=== PATIENT | female | born 1975 | race Caucasian/White ===

== ENCOUNTER 2018-04-08 00:05 | Emergency (ER) | payer OTHER ==
[2018-04-08 00:12] VITALS: BP 148/78; PULSE 82; RESP 18; TEMP 98.2
--- NOTE | 2018-04-08 00:35 | ED ---
Extremity Problem HPI - General Chief complaint: Extremity Problem,Nontraumatic Stated complaint: leg pain Time Seen by Provider: 04/08/18 00:14 Source: patient, RN notes reviewed Mode of arrival: ambulatory Limitations: no limitations - History of Present Illness Initial comments: This a 42-year-old female presents emergency Department chief complaint of left leg pain. Patient states she had pain back in August behind her knee her doctor told her to lose weight at that time. Patient ultrasound. She states she does have multiple varicose veins. She now complains of area of tenderness and redness to left medial thigh denies injury, fever, chills. Patient states that her whole leg feels swollen. Denies any pain with ambulation denies any chest pain or shortness of breath. No history of DVT. - Related Data Allergies Allergy/AdvReac Type Severity Reaction Status Date / Time Penicillins Allergy Nausea & Verified 04/08/18 00:12 Vomiting Review of Systems ROS Statement: Those systems with pertinent positive or pertinent negative responses have been documented in the HPI. ROS Other: All systems not noted in ROS Statement are negative. Past Medical History Past Medical History: Asthma, Hypertension History of Any Multi-Drug Resistant Organisms: None Reported Past Surgical History: Section, Tubal Ligation Additional Past Surgical History / Comment(s): left wrist, umbilical hernia repair x 2. Past Psychological History: Anxiety Smoking Status: Current every day smoker Past Alcohol Use History: None Reported, Rare Past Drug Use History: None Reported General Exam Limitations: no limitations General appearance: alert, in no apparent distress Head exam: Present: atraumatic, normocephalic, normal inspection Neck exam: Present: normal inspection, full ROM. Absent: tenderness, meningismus, lymphadenopathy Respiratory exam: Present: normal lung sounds bilaterally. Absent: respiratory distress, wheezes, rales, rhonchi, stridor Cardiovascular Exam: Present: regular rate, normal rhythm, normal heart sounds. Absent: systolic murmur, diastolic murmur, rubs, gallop, clicks Extremities exam: Present: other (Left thigh there is small area of erythema and moderate tenderness, palpable area of tenderness in the left medial thigh pedal pulses equal bilaterally there is no calf tenderness multiple varicosities noted) Skin exam: Present: warm, dry, intact, normal color. Absent: rash Course Vital Signs 04/08/18 00:06 Temperature 98.2 F Pulse Rate 82 Respiratory 18 Rate Blood Pressure 148/78 O2 Sat by Pulse 97 Oximetry Medical Decision Making - Medical Decision Making 42-year-old female presents for left leg pain. Patient had old trauma does not show any evidence of DVT. Patient has superficial thrombophlebitis. Patient also has popliteal cyst noted. Patient will be advised to take anti- inflammatories and apply warm compresses. Disposition Clinical Impression: Superficial thrombophlebitis, Popliteal cyst Disposition: HOME SELF-CARE Condition: Stable Instructions: Superficial Thrombophlebitis (ED) Additional Instructions: Please return to the Emergency Department if symptoms worsen or any other concerns. Is patient prescribed a controlled substance at d/c from ED?: No Referrals: Hailey Nava MD [Primary Care Provider] - 1-2 days
--- NOTE | 2018-04-08 01:10 | US ---
EXAMINATION TYPE: US venous doppler duplex LE LT DATE OF EXAM: 04/08/2018 12:53 AM COMPARISON: NONE CLINICAL HISTORY: Pain. Left leg pain x 1 week. Redness on inferior thigh. No hx o blood clots or o n blood thinners. SIDE PERFORMED: Left TECHNIQUE: The lower extremity deep venous system is examined utilizing real time linear array sonog juli with graded compression, doppler sonography and color-flow sonography. VESSELS IMAGED: External Iliac Vein (EIV) Common Femoral Vein Deep Femoral Vein Greater Saphenous Vein * Femoral Vein Popliteal Vein Small Saphenous Vein * Proximal Calf Veins (* superficial vessels) Left Leg: Appears negative for DVT. Posterior left knee cystic appearing lesion seen with internal echoes, nonvascular = 6.1 x 4.5 x 2.3 cm IMPRESSION: No evidence of deep venous thrombosis. Large complex popliteal cyst noted.
== END 2018-04-08 01:58 | disposition home or self-care (01) ==
LOC: SUPCPDRO 00:05 → EC 00:05
DX: I80.02 Phlebitis and thrombophlebitis of superficial vessels of left lower extremity (principal); M71.22 Synovial cyst of popliteal space [Baker], left knee; F17.200 Nicotine dependence, unspecified, uncomplicated; Z88.0 Allergy status to penicillin
CPT/HCPCS: 99283